=== PATIENT | male | born 1975 | race African-American/Black ===

== ENCOUNTER 2017-12-28 16:59 | Emergency (ER) | payer SELFPAY ==
[~2017-12-28] VITALS: Ht 154.9 cm; Wt 86.5 kg
[~2017-12-28 16:59] MED LIST: REME30TA PO; SERO100T PO
[2017-12-28] MEDS ORDERED: BACT800T5 PO (18:47)
[2017-12-28] MEDS ORDERED: CEPH-460 PO (18:47)
--- NOTE | 2017-12-28 18:47 | PD ---
HPI Chief Complaint: Bite or Sting Time Seen by Provider: 18:37 Travel History International Travel<30 days: No Contact w/Intl Traveler<30days: No Traveled to known affect area: No History of Present Illness HPI 42-year-old male here for evaluation of an infection to his right temporal scalp. Patient believes he may have been bitten by a spider 4 days ago. The area started out as a small pimple which he tried to squeeze. Progressively became larger. Pain is moderate, constant, worse with palpation. He is unsure if he has had a fever. He admits to smoking crack cocaine but denies IVDU. He states all he wants is an antibiotic and for me to cut it open and send him home. [facility] Social History Tobacco Use: Yes Allergies-Medications (Allergen,Severity, Reaction): Coded Allergies: No Known Allergies (Unverified Adverse Reaction, Unknown, 12/28/17) Reported Meds & Prescriptions Reported Meds & Active Scripts Active Keflex (Cephalexin) 500 Mg Cap 500 Mg PO Q8H Bactrim DS (Sulfamethoxazole-Trimethoprim) 800-160 Mg Tab 1 Tab PO BID Review of Systems Except as stated in HPI: all other systems reviewed are Neg Physical Exam Narrative GENERAL: Well-developed, well-nourished, comfortable, no apparent distress.. HEAD: Right temporal scalp with a moderate sized area of induration with an area at the center that is scabbed. Mild warmth, no erythema, no fluctuance, no crepitus. This area was evaluated using a bedside ultrasound and shows cobblestoning which is consistent with cellulitis, no drainable fluid collection. EYES: Pupils equal and round. EOMI. No scleral icterus. No injection or drainage. ENT: Mucous membranes pink and dry. NECK: Trachea midline. No JVD. No nuchal rigidity. CARDIOVASCULAR: Regular rate and rhythm. RESPIRATORY: No accessory muscle use. Clear to auscultation. Breath sounds equal bilaterally. MUSCULOSKELETAL: No obvious deformities. No clubbing. No cyanosis. No edema. NEUROLOGICAL: Awake and alert. No obvious cranial nerve deficits. Motor grossly within normal limits. Normal speech. PSYCHIATRIC: Appropriate mood and affect; insight and judgment normal. Data Data Orders Orders Sulfamet-Trimeth Ds 800-160 Mg (Bactrim (12/28/17 19:00) Cephalexin (Keflex) (12/28/17 19:00) Ed Discharge Order (12/28/17 18:48) [facility] Medical Decision Making Medical Screen Exam Complete: Yes Emergency Medical Condition: Yes Differential Diagnosis Cellulitis, abscess Narrative Course This is a 42-year-old male with a large area of induration to his right temporal scalp. He states it started out as a pimple about 4 days ago. He has been squeezing the area and it has progressively enlarged. This area was evaluated by me using a bedside linear ultrasound and shows cobblestoning which is consistent with cellulitis. There are no drainable fluid collections. There is no proptosis on exam. His extraocular movements are intact. Plan is to start him on Bactrim and Keflex and have him return to the emergency department in 2 days. Warm compresses endorsed. He was advised on when to return to the emergency department sooner. He verbalizes understanding and agreement with plan. Procedures Procedure Narrative Bedside ultrasound: Using a linear ultrasound probe, a bedside ultrasound was performed by me over the area of concern the patient's right temporal scalp. This revealed cobblestoning which is consistent with cellulitis, no drainable fluid collections. Diagnosis Primary Impression: Cellulitis of scalp Referrals: [facility] 2 days Additional Instructions: Return to the emergency department in 2 days for reevaluation. Take antibiotics as prescribed. Return to the emergency department sooner for worsening symptoms or any other concerns. Scripts Cephalexin (Keflex) 500 Mg Cap 500 MG PO Q8H for Infection, #30 CAP 0 Refills Prov: Julito Gil MD 12/28/17 Sulfamethoxazole-Trimethoprim (Bactrim DS) 800-160 Mg Tab 1 TAB PO BID for Infection, #20 TAB 0 Refills Prov: Julito Gil MD 12/28/17 Disposition: 01 DISCHARGE HOME Condition: Stable Julito Gil MD Dec 28, 2017 18:47
[2017-12-28] MEDS ORDERED: SULFAMETHOXAZOLE-TRIMETHOPRIM DS 800-160 MG TAB PO ONE (19:00)
[2017-12-28] MEDS ORDERED: CEPHALEXIN MONOHYDRATE 500 MG CAP PO ONE (19:00)
== END 2017-12-28 19:03 | disposition home or self-care (01) ==
LOC: NEPD 16:59
DX: L03.811 Cellulitis of head [any part, except face] (principal); Z72.0 Tobacco use
CPT/HCPCS: 99283